=== PATIENT | female | born 2000 | race American Indian/Alaskan Native ===

== ENCOUNTER 2022-04-28 17:27 | Emergency (ER) | payer SELFPAY ==
[2022-04-28 19:23] VITALS: BP 132/72
--- NOTE | 2022-04-29 00:19 | XRay Report ---
XR chest routine 2V INDICATION / CLINICAL INFORMATION: shortness of breath. COMPARISON: None available. FINDINGS: SUPPORT DEVICES: None. HEART /PULMONARY VASCULATURE: No significant abnormality. LUNGS / PLEURA: No significant pulmonary or pleural abnormality. No pneumothorax. ADDITIONAL FINDINGS: No significant additional findings. IMPRESSION: 1. No acute findings. Signer Name: John Burnham MD Signed: 04/29/2022 12:15 AM Workstation Name: [id number]
[2022-04-29] MEDS ORDERED: ACETAMINOPHEN 500 MG TAB PO ONE (02:16)
[2022-04-29 02:30] LABS: HCG Qualitative,Urine Negative (Negative)
[2022-04-29 02:40] LABS: Mucus,Urine FEW /HPF
[2022-04-29 02:47] LABS: Bilirubin,Urine Negative (Negative); Blood,Urine Negative (Negative); Color,Urine Yellow (Yellow)
[2022-04-29] MEDS ORDERED: traMADol 50 MG TAB PO ONE (02:56)
--- NOTE | 2022-04-29 03:00 | Emergency Department Report ---
ED General Adult HPI - General Chief complaint: Weakness Stated complaint: WHOLE BODY PAIN Time Seen by Provider: 04/29/22 02:14 Source: patient Mode of arrival: Wheelchair Limitations: No Limitations - History of Present Illness Initial comments: Is a 21-year-old Afro[place] female who presents for generalized body aches x1 week. Patient denies fevers or chills patient does endorse generalized malaise. There is no productive cough there is no sore throat or ear pain. There is no shortness of breath or wheezing. Last menstrual cycle 2 weeks ago. Patient states pain is primarily low back. Patient denies fall injury or trauma. Back pain is rated at 5/10 radiating to bilateral legs. Patient denies dysuria frequency or urgency. There is no vaginal discharge. Patient denies other symptoms Severity scale (0 -10): 10 - Related Data Previous Rx's Medication Instructions Recorded Last Taken Type Menthol/Camphor [Poneto [place] 50 gm TP TID PRN #1 tube 04/29/22 Unknown Rx Ointment] Naproxen 500 mg PO BID PRN #30 tab 04/29/22 Unknown Rx Allergies Allergy/AdvReac Type Severity Reaction Status Date / Time No Known Allergies Allergy Unverified 04/28/22 19:23 ED Review of Systems ROS: Stated complaint: WHOLE BODY PAIN Other details as noted in HPI Constitutional: denies: chills, fever Eyes: denies: eye pain, eye discharge, vision change ENT: denies: ear pain, throat pain Respiratory: denies: cough, shortness of breath, wheezing Cardiovascular: denies: chest pain, palpitations Endocrine: no symptoms reported Gastrointestinal: denies: abdominal pain, nausea, vomiting, diarrhea Genitourinary: denies: urgency, dysuria, discharge Musculoskeletal: back pain. denies: myalgia Skin: denies: rash, lesions Neurological: headache. denies: weakness, paresthesias, vertigo Psychiatric: denies: anxiety, depression Hematological/Lymphatic: denies: easy bleeding, easy bruising ED Past Medical Hx - Past Medical History Previous Medical History?: No - Surgical History Past Surgical History?: No - Medications Home Medications: Home Medications Medication Instructions Recorded Confirmed Last Taken Type Menthol/Camphor [Poneto [place] 50 gm TP TID PRN #1 tube 04/29/22 Unknown Rx Ointment] Naproxen 500 mg PO BID PRN #30 tab 04/29/22 Unknown Rx ED Physical Exam - General Limitations: No Limitations General appearance: alert, in no apparent distress - Head Head exam: Present: normocephalic, normal inspection - Eye Eye exam: Present: normal appearance, EOMI. Absent: conjunctival injection, nystagmus Pupils: Present: normal accommodation - ENT ENT exam: Present: normal orophraynx, mucous membranes moist, TM's normal bilaterally, normal external ear exam - Neck Neck exam: Present: normal inspection, full ROM. Absent: tenderness, lymphadenopathy - Respiratory Respiratory exam: Present: normal lung sounds bilaterally. Absent: respiratory distress, wheezes, stridor, chest wall tenderness - Cardiovascular Cardiovascular Exam: Present: regular rate, normal rhythm, normal heart sounds. Absent: systolic murmur, diastolic murmur, rubs, gallop - GI/Abdominal GI/Abdominal exam: Present: soft, normal bowel sounds. Absent: distended, tenderness - Rectal Rectal exam: Present: deferred - Extremities Exam Extremities exam: Present: normal inspection, full ROM, normal capillary refill - Back Exam Back exam: Present: normal inspection, full ROM. Absent: CVA tenderness (R), CVA tenderness (L), paraspinal tenderness, vertebral tenderness - Neurological Exam Neurological exam: Present: alert, oriented X3, CN II-XII intact, normal gait - Expanded Neurological Exam Expanded Patient oriented to: Present: person, place, time Speech: Present: fluid speech Cranial nerves: EOM's Intact: Normal, Gag Reflex: Normal Cerebellar function: Finger to Nose: Normal Motor strength exam: RUE: 5, LUE: 5, RLE: 5, LLE: 5 Best Eye Response ([place]): (4) open spontaneously Best Motor Response (Javier): (6) obeys commands Best Verbal Response (Javier): (5) oriented [place] Total: 15 - Psychiatric Psychiatric exam: Present: normal affect, normal mood - Skin Skin exam: Present: warm, dry, intact, normal color. Absent: rash ED Course Vital Signs 04/28/22 04/29/22 19:16 02:37 Temperature 98.7 F Pulse Rate 112 H Respiratory 22 16 Rate Blood Pressure 132/72 [Left] O2 Sat by Pulse 100 Oximetry ED Medical Decision Making - Lab Data Labs 04/29/22 02:12 Urine Color Yellow Urine Turbidity Slightly cloudy Urine pH 6.0 Ur Specific [place] 1.020 Urine Protein 30 mg/dl Urine Glucose (UA) Negative Urine Ketones 80 Urine Blood Negative Urine Nitrite Negative Ur Reducing Substances Not Reportable Urine Bilirubin Negative Urine Ictotest Not Reportable Urine Urobilinogen 0.0 Ur Leukocyte Esterase Negative Urine WBC (Auto) Not Reportable Urine RBC (Auto) Not Reportable U Epithel Cells (Auto) 4.0 Urine Mucus Few Urine HCG, Qual Negative - Medical Decision Making UA noted above normal, pain is improved with medications given in ED plan DC to home with prescription. Moist heat therapy to low back. Follow-up with primary care doctor in 2 to 3 days. Patient verbalized agreement and understanding with discharge plan. Pt is DC'd home in stable condition at this time. Critical care attestation.: If time is entered above; I have spent that time in minutes in the direct care of this critically ill patient, excluding procedure time. ED Disposition Clinical Impression: Viral illness Low back strain Qualifiers: Encounter type: initial encounter Qualified Code(s): S39.012A - Strain of muscle, fascia and tendon of lower back, initial encounter Disposition: HOME / SELF CARE / HOMELESS Is pt being admited?: No Does the pt Need Aspirin: No Condition: Stable Instructions: Low Back Sprain or Strain Rehab-SportsMed, Viral Illness, Adult Additional Instructions: Take medications as prescribed, follow-up with your doctor in 2 to 3 days. Return to emergency department should symptoms worsen. Prescriptions: Naproxen 500 mg PO BID PRN #30 tab PRN Reason: Pain, Moderate (4-6) Menthol/Camphor [Poneto [place] Ointment] 50 gm TP TID PRN #1 tube PRN Reason: pain spasm Referrals: NELLIE BURKETT MD [Primary Care Provider] - 3-5 Days Forms: Work/School Release Form(ED) Time of Disposition: 03:11
== END 2022-04-29 03:27 | disposition home or self-care (01) ==
LOC: ED 17:27
DX: S39.012A Strain of muscle, fascia and tendon of lower back, initial encounter (principal); B34.9 Viral infection, unspecified; X58.XXXA Exposure to other specified factors, initial encounter; Y93.89 Activity, other specified; Y92.89 Other specified places as the place of occurrence of the external cause; Y99.8 Other external cause status
CPT/HCPCS: 71046; 81001; 81025; 99284